=== PATIENT | male | born 1965 | race Caucasian/White ===

== ENCOUNTER 2018-07-01 11:54 | Emergency (ER) | payer SELFPAY ==
[~2018-07-01] VITALS: Ht 185.4 cm; Wt 95.3 kg
--- NOTE | 2018-07-01 12:15 | PHYS DOC ---
Adult General Chief Complaint Chief Complaint: NEURO SYMPTOMS/DEFICITS HPI HPI 52-year-old male presents with concern for stroke. He states that he woke up at 10:00 this morning and his right arm "was not working right". He felt like there was weakness in this extremity. He also admits that there is pain in the upper lateral shoulder. He was feeling a bit groggy as well and this was concerning. He is not sure if this is his blood sugar or further signs that he may have brain involvement. Patient has no history of strokes. He is a diabetic. Denies slurred speech, change in sensory perception, or change in coordination. After the CT, the patient told me that he was doing a lot of physical labor yesterday working on a house. He was moving a lot of things around and carrying things. He admits he may have overused his extremity. He tells me that he mostly can't hold the arm up because it is painful. He denies fever or chills. He has been taking his medications, but did not take anything this morning. He did not check his blood sugar this morning, but drank some chocolate milk. Review of Systems Review of Systems Constitutional: Denies fever or chills [] Eyes: Denies change in visual acuity, redness, or eye pain [] HENT: Denies nasal congestion or sore throat [] Respiratory: Denies cough or shortness of breath [] Cardiovascular: No additional information not addressed in HPI [] GI: Denies abdominal pain, nausea, vomiting, bloody stools or diarrhea [] : Denies dysuria or hematuria [] Musculoskeletal: Right shoulder pain and weakness[] Integument: Denies rash or skin lesions [] Neurologic: Denies headache, focal weakness or sensory changes [] Endocrine: Denies polyuria or polydipsia [] All other systems were reviewed and found to be within normal limits, except as documented in this note. Physical Exam Physical Exam Constitutional: Well developed, well nourished, no acute distress, non-toxic appearance. [] HENT: Normocephalic, atraumatic, bilateral external ears normal, oropharynx moist, no oral exudates, nose normal. [] Eyes: PERRLA, EOMI, conjunctiva normal, no discharge. [] Neck: Normal range of motion, no tenderness, supple, no stridor. [] Cardiovascular:Heart rate regular rhythm, no murmur [] Lungs & Thorax: Bilateral breath sounds clear to auscultation [] Abdomen: Bowel sounds normal, soft, no tenderness, no masses, no pulsatile masses. [] Skin: Warm, dry, no erythema, no rash. [] Back: No tenderness, no CVA tenderness. [] Extremities: Tenderness over the right lateral shoulder. Strength testing limited due to pain.[] Neurologic: Alert and oriented X 3, normal motor function, normal sensory function, no focal deficits noted. See NIHSS below [] Psychologic: Affect normal, judgement normal, mood normal. [] EKG EKG Sinus rhythm, rate 85, normal axis, no ST elevations or depressions.[] Radiology/Procedures Radiology/Procedures [] Impressions: CT HEAD INDICATION: Left arm weakness COMPARISON: None Available. Exposure: One or more of the following individualized dose reduction techniques were utilized for this examination: 1. Automated exposure control 2. Adjustment of the mA and/or kV according to patient size 3. Use of iterative reconstruction technique TECHNIQUE: 5 mm contiguous axial images were obtained from the skull base to the vertex in both bone and soft tissue algorithm. FINDINGS: Mild bilateral periventricular white matter hypodensities likely chronic small vessel ischemic disease. The left middle cerebral artery appears slightly hyperdense could be hyperdense MCA sign or physiological. No evidence of loss of mix-white matter differentiation in the left MCA territory. No evidence of acute intracranial hemorrhage. No extra-axial fluid collections. No mass effect or midline shift. Ventricular size is appropriate. Basal cisterns are patent. No fractures identified.Mix-white differentiation is preserved.Globes and orbits are within normal limits. Paranasal sinuses and mastoid air cells are clear. IMPRESSION: 1. No acute intracranial bleed. 2. The left middle cerebral artery appears slightly hyperdense could be hyperdense MCA sign or physiological. No evidence of loss of mix-white matter differentiation in the left MCA territory to suggest acute stroke. Correlate clinically. Dr. Mancia informed at 12:05 PM same day exam. Electronically signed by: Kodi Maloney MD (07/01/2018 12:10 PM) [facility] DICTATED AND SIGNED BY: KODI MALONEY MD DATE: 07/01/18 1210 CC: SHLOMO MANCIA DO; PCP,UNKNOWN ~ Course & Med Decision Making Course & Med Decision Making Pertinent Labs and Imaging studies reviewed. (See chart for details) The patient did have a drift of the right arm in the waiting room. He came by POV. He was immediately taken for head CT as a code stroke. There was no acute bleed visible on CT. The patient's NH stroke scale score is 1. I believe his arm symptoms are due to deltoid pain. His EKG is unremarkable. His labs are significant for a blood sugar over 400. We have given 1 L normal saline and 10 units of insulin. The patient is feeling a bit better at this time. He has been sleeping in the ED. The pain in his arm is less intense. He feels less groggy. He admits that he has had a lot of stress lately and is not getting much sleep. His repeat blood sugar was not really any better. I will give him an additional 1 L saline and 10 more units of regular insulin. His anion gap is normal. The patient's third glucose reading is 236. He has had a total of 2 L of saline and 20 units of regular insulin. He is stable for discharge at this time. 32 minutes of critical care time was spent on this patient exclusive of other billable procedures. [] Dragon Disclaimer Dragon Disclaimer This electronic medical record was generated, in whole or in part, using a voice recognition dictation system. NIH Stroke Scale: NIH Stroke Scale Response (Comments) Value Level of Consciousness: 0 Alert/Responsive 0 LOC Questions: 0 Answers both correctly 0 LOC Commands: 0 Performs both tasks 0 Best Gaze: 0 Normal 0 Facial Palsy: 0 Normal, symmetrical 0 Motor - Left Arm 0 No drift 0 Motor - Right Arm 1 Drifts but can hold 1 Motor - Left Leg 0 No drift 0 Motor: Right Leg 0 No drift 0 Limb Ataxia: 0 Absent 0 Sensory: 0 No loss 0 Best Language: 0 Normal 0 Dysathria: 0 Normal 0 Extinction and Inattention: 0 Normal 0 Total 1 Departure Departure: Impression: Primary Impression: Hyperglycemia due to type 2 diabetes mellitus Additional Impression: Right shoulder pain Disposition: HOME, SELF-CARE Condition: STABLE Referrals: PCP,UNKNOWN (PCP) Patient Instructions: Hyperglycemia, Cide-sp-Ymft, Shoulder Pain, [id number] Problem Qualifiers Primary Impression: Hyperglycemia due to type 2 diabetes mellitus 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
[2018-07-01] MEDS ORDERED: IV NORMAL SALINE 1,000ML 1,000 ML IV ONE ×2 (12:30→14:00)
[2018-07-01 12:37] LABS: HEMATOCRIT 47.4 % (39.0-53.0); HEMOGLOBIN 16.3 g/dL (13.0-17.5); RED BLOOD COUNT 5.26 x10^6/uL (4.30-5.70); RED CELL DISTRIBUTION WIDTH 13.1 % (11.5-14.5); WHITE BLOOD COUNT 7.8 x10^3/uL (4.0-11.0)
[2018-07-01 12:44] LABS: CALCIUM 9.1 mg/dL (8.5-10.1); GFR 79.1; POTASSIUM 4.1 mmol/L (3.5-5.1)
[2018-07-01] MEDS ORDERED: INSULIN REGULAR 100 UNIT/ML 3ML VIAL. IV ONE ×2 (12:45→14:00)
[2018-07-01 14:29] VITALS: BP 136/69
--- NOTE | 2018-07-02 15:37 | EKG ---
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
== END 2018-07-01 15:11 | disposition home or self-care (01) ==
LOC: ER 11:54
DX: E11.65 Type 2 diabetes mellitus with hyperglycemia (principal); M25.511 Pain in right shoulder
CPT/HCPCS: 36415; 70450; 80048; 82947; 85027; 85610; 85730; 93005; 96361; 96374; 96376; 99285; J1815; J7030

== ENCOUNTER 2019-02-22 17:51 | Inpatient (IN) | payer SELFPAY ==
[~2019-02-22] VITALS: Ht 185.4 cm; Wt 94.4 kg
[2019-02-22] MEDS ORDERED: IV RINGERS SOLUTION,LACTATED 1,000 ML IV SCH (18:03)
--- NOTE | 2019-02-22 18:03 | PHYS DOC ---
Past History Past Medical History: Diabetes, Other Past Surgical History: No Surgical History Alcohol Use: Rarely Drug Use: None Adult General Chief Complaint Chief Complaint: INSECT BITE..." I think I got a spider bite or something last .. on my back... it gotten much larger.. and hurts now...".." I ve been doing rehabilitation to this house.... " HPI HPI Patient is a 53 year old male who presents with insect- spider bite vs cellulitis. Patient states he thinks he got an insect bite on the back of his neck at several locations on , since that time the areas become red , inflamed and painful. Patient has an area approximately 18 x 20 cm with 4 areas of pointing abscess . Area under these points are fluctuant . Pt. does not remember his last tetanus. Patient does have a history of diabetes. Pt. follows with Dr. Coughlin. Patient referred to the emergency department for further evaluation I Dr. Coughlin. Pt. denies hx of immunosuppression or recent travel. Pt. rates cellulitis area pain as 20/10. Review of Systems Review of Systems Constitutional: Hx of fever or chills [] Eyes: Denies change in visual acuity, redness, or eye pain [] HENT: Denies nasal congestion or sore throat [] Respiratory: Denies cough or shortness of breath [] Cardiovascular: No additional information not addressed in HPI [] GI: Denies abdominal pain, nausea, vomiting, bloody stools or diarrhea [] : Denies dysuria or hematuria [] Musculoskeletal: Denies back pain or joint pain [] Integument: Complaints of spider bite to neck area. Neurologic: Denies headache, focal weakness or sensory changes [] Endocrine: Denies polyuria or polydipsia [] All other systems were reviewed and found to be within normal limits, except as documented in this note. Family History Family History Non-contributory Current Medications Current Medications See Nursing for home meds Allergies Allergies Allergies Coded Allergies Type Severity Reaction Last Updated Verified No Known Drug Allergies 07/01/18 No Physical Exam Physical Exam Constitutional: moderate acute distress, non-toxic appearance. [] HENT: Normocephalic, atraumatic, bilateral external ears normal, oropharynx dry, no oral exudates, nose normal. [] Eyes: PERRLA, EOMI, conjunctiva normal, no discharge. [] Neck: Limited range of motion, posterior neck edema and tenderness- edge of cellulitis, no stridor. [] Cardiovascular:Tachycardia Heart rate regular rhythm, no murmur , PMI to Lt. Lungs & Thorax: Bilateral breath sounds equal at apexes with scattered wheezes, some basilar crackles on auscultation [] Abdomen: Bowel sounds normal, soft, no tenderness, no masses, no pulsatile masses. Obese Skin: Warm, dry, except large area of cellulitis and 4 pointing abscess on upper back and neck area. Back: No tenderness, no CVA tenderness. Large area of cellulitis upper back and neck area. Extremities: No tenderness, no cyanosis, no clubbing, ROM intact, no edema. [] No cording appreciated. Neurologic: Alert and oriented X 3, normal motor function, distal sensory function, no focal deficits noted. [] Psychologic: Affect anxious, judgement normal, mood normal. [] EKG EKG I interpretation EKG shows a sinus tachycardia heart 60 bpm. This was nonspecific contour changes anterior lateral. But no findings of acute STEMI of contralateral changes. 1832 hrs. Repeat EKG at 1943 hrs. shows[] continued sinus tachycardia rate of 154 bpm. Some still nonspecific contour changes. But no findings acute STEMI of contralateral changes. Radiology/Procedures Radiology/[place] [id number] IMAGING REPORT Signed PATIENT: ELVIA CRUZ CACCOUNT: [id number] : 1965 LOCATION: ER AGE: 53 SEX: M EXAM STATUS: REG ER ORD. PHYSICIAN: KING TAN MD REASON: dm, cellulitis, chest wall PROCEDURE: CHEST PA & LATERAL Study: CHEST PA LATERAL Indication: Chest wall cellulitis. Comparison: None. Findings: Unremarkable cardiomediastinal silhouette and sahara. No pneumothorax, lobar infiltrate or pleural effusion. No soft tissue gas seen along the chest wall. Impression: No acute radiographic abnormality of the chest. Electronically signed by: DEMETRICE MATHIAS MD (02/22/2019 6:30 PM) [facility] DICTATED AND SIGNED BY: DEMETRICE MATHIAS MD DATE: 02/22/19 1830 CC: KING TAN MD; JATINDER DE LA ROSA ~ [address] [address] IMAGING REPORT Signed PATIENT: ELVIA CRUZ CACCOUNT: [id number] : 1965 LOCATION: ER AGE: 53 SEX: M EXAM STATUS: REG ER ORD. PHYSICIAN: KING TAN MD REASON: INSECT BITE, REDNESS, PAIN, SWELLING LT UPPER BACK, EVAL ABSCESS PROCEDURE: US CHEST Ultrasound of the posterior chest wall. HISTORY: Insect bite, redness pain, pain and swelling Ultrasound was used to evaluate the upper back on the left side. There is superficial soft tissue edema. A focal abscess or fluid collection was not identified. IMPRESSION: 1. Local subcutaneous soft tissue swelling. 2. No abscess or abnormal fluid collection identified. Electronically signed by: Maynor Ross MD (02/22/2019 10:10 PM) [facility] DICTATED AND SIGNED BY: MAYNOR ROSS MD DATE: 02/22/192209 CC: KING TAN MD; JATINDER DE LA ROSA ~ [][address] [address] IMAGING REPORT Signed PATIENT: ELVIA CRUZ CACCOUNT: [id number] : 1965 LOCATION: ER AGE: 53 SEX: M EXAM STATUS: REG ER ORD. PHYSICIAN: KING TAN MD REASON: Dyspnea, elev. D-dimer, abscess to upper back, spider bites. PROCEDURE: CT ANGIOGRAPHY CHEST Examination: CT angiography chest with IV contrast HISTORY: History of dyspnea, elevated d-dimer Technique: Axial CT angiography images of chest were performed with IV contrast. Coronal and sagittal 3-D MIP reformats are performed. Exposure: One or more of the following individualized dose reduction techniques were utilized for this examination: 1. Automated exposure control 2. Adjustment of the mA and/or kV according to patient size 3. Use of iterative reconstruction technique FINDINGS: The visualized thyroid grossly appears unremarkable. Central airways are patent. Mild cardiomegaly. The caliber of the aorta grossly appears unremarkable. There is no evidence of filling defect identified in the main pulmonary arterial trunk and right and left main pulmonary arteries. The evaluation of the distal lobar, segmental branches of the pulmonary arteries is limited. The lungs are clear. The liver, spleen, adrenals grossly appears unremarkable. Mild coronary artery calcifications. Moderate subcutaneous fat stranding identified in the upper back likely cellulitis. Moderate degenerative changes thoracic spine. IMPRESSION: 1. No evidence of central pulmonary embolism. 2. The lungs are clear. 3. Moderate diffuse fat stranding identified in the subcutaneous region of the upper back posteriorly probably cellulitis. Electronically signed by: Kodi Maloney MD (02/22/2019 9:46 PM) [facility] [place] Course & Med Decision Making Course & Med Decision Making Pertinent Labs and Imaging studies reviewed. (See chart for details) Pt. admitted to Dr. Bray for further eval. and treatment. Procedure Note: Incision and drainage- Area of cellulitis and abscess prepped with Betadine- use of sterile gloves and technique -incision and drainage of 4 pointing abscesses with return of pus with 11 blade. Area is probed with Q-tip to evaluate for tracking abscess. Cultures taken. Areas of these abscesses did not appear to communicate. Will appear obtain ultrasound to evaluate for other localized areas of abscess. Dressing applied. Will hydrate and treat with antibiotics. Will get cardiology consult. Lovenox for elevated D-dimer. Will not aggressively treat the tachycardia until hydration and anti biotics area on board. IV Insulin for hyperglycemia. May need further or repeat drainage of area of cellulitis. Impression; 1. Abscess and Cellulitis 2. Leukocytosis 24 with 89 Neut 3. Elevated D-dimer 3.46 4. Hyponatremia 119 5. DM = glucose 497 6. Elevated Lactic Acid 2.7 7. Elevated Alk Phos. 247 8. CHF-diastolic dysfunction - BNP 1,279 9. Severe Malnutrition 1.7 albumin. 10.Tachycardia- Appears sinus 11. Drug Screen + Meth/Amphetamine. 12. DKA vs Metabolic Acidosis from early SIR's / Sepsis [] Dragon Disclaimer Dragon Disclaimer This electronic medical record was generated, in whole or in part, using a voice recognition dictation system. Departure Departure: Disposition: 01 HOME/RESIDENCE PRIOR TO ADM Condition: STABLE Referrals: JATINDER DE LA ROSA (PCP) Dannie Disclaimer This chart was dictated in whole or in part using Voice Recognition software in a busy, high-work load, and often noisy Emergency Department environment. It may contain unintended and wholly unrecognized errors or omissions. Dannie Disclaimer This chart was dictated in whole or in part using Voice Recognition software in a busy, high-work load, and often noisy Emergency Department environment. It may contain unintended and wholly unrecognized errors or omissions. KING TAN MD Feb 22, 2019 18:03
--- NOTE | 2019-02-22 18:33 | RAD ---
Study: CHEST PA LATERAL Indication: Chest wall cellulitis. Comparison: None. Findings: Unremarkable cardiomediastinal silhouette and sahara. No pneumothorax, lobar infiltrate or pleural effusion. No soft tissue gas seen along the chest wall. Impression: No acute radiographic abnormality of the chest. Electronically signed by: DEMETRICE MATHIAS MD (02/22/2019 6:30 PM) [facility] [place]
[2019-02-22] MEDS ORDERED: IV RINGERS SOLUTION,LACTATED 1,000 ML IV ONE (18:45)
[2019-02-22] MEDS ORDERED: IV NORMAL SALINE 50ML 50 ML ONE (18:59)
[2019-02-22] MEDS ORDERED: cefTRIAXone SODIUM 1 GM VIAL ONE (18:59)
[2019-02-22] MEDS ORDERED: IV NORMAL SALINE 500ML 500 ML ONE ×2 (18:59→19:13)
[2019-02-22] MEDS ORDERED: VANCOMYCIN 1 GM VIAL. ONE (18:59)
[2019-02-22] MEDS ORDERED: DIPHTH,PERTUSS(ACELL),TET TOX 0.5 ML DISP.SYRIN. VAX IM ONE (19:00)
[2019-02-22] MEDS ORDERED: LIDOCAINE 2% 20 ML VIAL. IJ ONE (19:00)
[2019-02-22] MEDS ORDERED: MORPHINE SULFATE 10 MG/ML SYRINGE. SQ ONE (19:00)
[2019-02-22] MEDS ORDERED: VANCOMYCIN 1.5 GM in IV NORMAL SALINE 500ML 500 ML IV ONE (19:00)
[2019-02-22] MEDS ORDERED: ONDANSETRON PF 4 MG/2 ML VIAL. ONE (19:15)
[2019-02-22 19:17] LABS: BASO # 0.1 x10^3/uL (0.0-0.2); BASO % 0 % (0-3); EOS % 0 % (0-3); HEMATOCRIT 41.2 % (39.0-53.0); LYMPH # 0.6 x10^3/uL (1.0-4.8); LYMPH % 3 % (24-48); MEAN CORPUSCULAR HEMOGLOBIN 30 pg (25-35); MEAN CORPUSCULAR HGB CONC 34 g/dL (31-37); MEAN CORPUSCULAR VOLUME 87 fL (79-100); MONO % 8 % (0-9); NEUT # 21.2 x10^3uL (1.8-7.7); NEUT % 89 % (31-73); PLATELET COUNT 349 x10^3/uL (140-400); RED BLOOD COUNT 4.74 x10^6/uL (4.30-5.70); RED CELL DISTRIBUTION WIDTH 12.4 % (11.5-14.5)
[2019-02-22] MEDS ORDERED: ONDANSETRON PF 4 MG/2 ML VIAL. IVP ONE (19:30)
[2019-02-22 19:45] LABS: ALBUMIN 1.7 g/dL (3.4-5.0); CALCIUM 8.6 mg/dL (8.5-10.1); DIRECT BILIRUBIN 0.2 mg/dL (0.0-0.2); GFR 78.8; POTASSIUM 3.6 mmol/L (3.5-5.1); TOTAL BILIRUBIN 0.5 mg/dL (0.2-1.0); TOTAL PROTEIN 6.7 g/dL (6.4-8.2)
[2019-02-22] MEDS ORDERED: SODIUM BICARBONATE 50 MEQ/50 ML VIAL. IV ONE (20:45)
[2019-02-22] MEDS ORDERED: INSULIN REGULAR VIAL 100 UNIT in IV NORMAL SALINE 100ML 100 ML IV ONE (21:00)
[2019-02-22] MEDS ORDERED: IOHEXOL 350 MG/ML 100 ML VIAL. IV ONE (21:00)
[2019-02-22] MEDS ORDERED: ACETAMINOPHEN 325 MG TABLET PO PRN (21:00)
[2019-02-22] MEDS ORDERED: ONDANSETRON PF 4 MG/2 ML VIAL. IV PRN (21:00)
[2019-02-22] MEDS ORDERED: MORPHINE SULFATE 10 MG/ML SYRINGE. SQ PRN (21:00)
[2019-02-22] MEDS ORDERED: FUROSEMIDE 40 MG/4 ML VIAL IVP ONE (21:15)
[2019-02-22] MEDS ORDERED: ENOXAPARIN ** NOTE DOSE ** SYRINGE SQ ONE (21:15)
[2019-02-22] MEDS ORDERED: IV NORMAL SALINE 1,000ML 1,000 ML IV ONE ×2 (21:15→23:00)
[2019-02-22 21:44] LABS: % LYMPHS 5 % (24-48); % MONOS 8 % (0-10); % SEGS 81 % (35-66)
[2019-02-22 21:45] LABS: % BANDS 4 % (0-9)
[2019-02-22 21:46] LABS: % METAS 2 % (0-0)
[2019-02-22 21:48] LABS: ANISOCYTOSIS SLIGHT; PLT ESTIMATE ADEQUATE (ADEQUATE); TEAR DROP CELLS OCC; TOXIC GRANULATION SLIGHT
--- NOTE | 2019-02-22 21:50 | RAD ---
Examination: CT angiography chest with IV contrast HISTORY: History of dyspnea, elevated d-dimer Technique: Axial CT angiography images of chest were performed with IV contrast. Coronal and sagittal 3-D MIP reformats are performed. Exposure: One or more of the following individualized dose reduction techniques were utilized for this examination: 1. Automated exposure control 2. Adjustment of the mA and/or kV according to patient size 3. Use of iterative reconstruction technique FINDINGS: The visualized thyroid grossly appears unremarkable. Central airways are patent. Mild cardiomegaly. The caliber of the aorta grossly appears unremarkable. There is no evidence of filling defect identified in the main pulmonary arterial trunk and right and left main pulmonary arteries. The evaluation of the distal lobar, segmental branches of the pulmonary arteries is limited. The lungs are clear. The liver, spleen, adrenals grossly appears unremarkable. Mild coronary artery calcifications. Moderate subcutaneous fat stranding identified in the upper back likely cellulitis. Moderate degenerative changes thoracic spine. IMPRESSION: 1. No evidence of central pulmonary embolism. 2. The lungs are clear. 3. Moderate diffuse fat stranding identified in the subcutaneous region of the upper back posteriorly probably cellulitis. Electronically signed by: Kodi Maloney MD (02/22/2019 9:46 PM) [facility]
--- NOTE | 2019-02-22 22:13 | RAD ---
Ultrasound of the posterior chest wall. HISTORY: Insect bite, redness pain, pain and swelling Ultrasound was used to evaluate the upper back on the left side. There is superficial soft tissue edema. A focal abscess or fluid collection was not identified. IMPRESSION: 1. Local subcutaneous soft tissue swelling. 2. No abscess or abnormal fluid collection identified. Electronically signed by: Maynor Ross MD (02/22/2019 10:10 PM) [facility]
[2019-02-22 22:24] LABS: BARBITURATES NEG (NEG); BENZODIAZEPINES NEG (NEG); CANNABINOIDS NEG (NEG); COCAINE NEG (NEG); METHADONE NEG (NEG); OPIATES POS (NEG); PHENCYCLIDINE NEG (NEG)
[2019-02-22 22:25] LABS: AMPHETAMINE/METHAMPHETAMINE POS (NEG)
[2019-02-22 23:00] LABS: CLARITY,URINE CLEAR; COLOR,URINE STRAW
[2019-02-22 23:01] LABS: BACTERIA,URINE 0 /HPF (0-FEW); BILIRUBIN,URINE NEG (NEG); GLUCOSE,URINE >=1000 mg/dL (NEG); NITRITE,URINE NEG (NEG); RBC,URINE RARE /HPF (0-2); SQUAMOUS EPITHELIAL CELL,UR OCC /LPF; UROBILINOGEN,URINE 0.2 mg/dL (0.2 mg/dL); WBC,URINE 0 /HPF (0-4)
[2019-02-22] MEDS ORDERED: VANCOMYCIN PER PHARMACY MC PRN (23:30)
[2019-02-22 23:38] VITALS: BP 103/67
[2019-02-23] MEDS ORDERED: METF500T16 PO (00:09)
[2019-02-23] MEDS ORDERED: DAPA10TA PO (00:09)
[2019-02-23] MEDS ORDERED: CITA20TA6 PO (00:09)
[2019-02-23] MEDS ORDERED: IV NORMAL SALINE 1,000ML 1,000 ML IV ONE ×3 (00:30→08:00)
[2019-02-23] MEDS ORDERED: DEXTROSE 50% 25 GM / 50ML DISP.SYRIN. IV PRN (00:30)
--- NOTE | 2019-02-23 00:50 | EKG ---
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
[2019-02-23 01:19] VITALS: BP 111/76
[2019-02-23 01:35] LABS: ALBUMIN 1.4 g/dL (3.4-5.0); ALBUMIN/GLOBULIN RATIO 0.3 (1.0-1.7); CALCIUM 7.7 mg/dL (8.5-10.1); CREATININE 0.7 mg/dL (0.7-1.3); GFR 118.9; POTASSIUM 3.7 mmol/L (3.5-5.1); TOTAL BILIRUBIN 0.4 mg/dL (0.2-1.0); TOTAL PROTEIN 5.5 g/dL (6.4-8.2)
[2019-02-23] MEDS: IV NORMAL SALINE 1,000ML 1,000 ML IV SCH ×2 (02:21→08:03)
[2019-02-23] MEDS ORDERED: VANCOMYCIN 1.5 GM in IV NORMAL SALINE 500ML 500 ML IV SCH (04:00)
[2019-02-23 05:18] VITALS: BP 95/60
[2019-02-23] MEDS ORDERED: PIPERACILLIN/TAZOBACTAM 3.375 GM in IV NORMAL SALINE 50ML 50 ML IV SCH (06:00)
[2019-02-23] MEDS ORDERED: FUROSEMIDE 40 MG/4 ML VIAL IVP ONE (06:00)
[2019-02-23 07:16] VITALS: BP 111/94
[2019-02-23] MEDS ORDERED: INSULIN LISPRO 300 UNITS/3 ML VIAL. SQ SCH (07:30)
[2019-02-23 07:58] VITALS: BP 107/70
[2019-02-23] MEDS ORDERED: IPRATRPIUM/ALBUTEROL 0.5/2.5MG 3 ML NEBU. NEB SCH (08:00)
[2019-02-23 08:07] LABS: BASO # 0.1 x10^3/uL (0.0-0.2); BASO % 1 % (0-3); EOS # 0.1 x10^3/uL (0.0-0.7); EOS % 1 % (0-3); HEMATOCRIT 36.3 % (39.0-53.0); HEMOGLOBIN 12.5 g/dL (13.0-17.5); LYMPH # 0.8 x10^3/uL (1.0-4.8); LYMPH % 4 % (24-48); MEAN CORPUSCULAR HEMOGLOBIN 29 pg (25-35); MEAN CORPUSCULAR HGB CONC 34 g/dL (31-37); MEAN CORPUSCULAR VOLUME 85 fL (79-100); MONO % 10 % (0-9); NEUT # 17.4 x10^3uL (1.8-7.7); NEUT % 85 % (31-73); PLATELET COUNT 313 x10^3/uL (140-400); RED BLOOD COUNT 4.25 x10^6/uL (4.30-5.70); RED CELL DISTRIBUTION WIDTH 12.6 % (11.5-14.5); WHITE BLOOD COUNT 20.5 x10^3/uL (4.0-11.0)
[2019-02-23 08:10] LABS: CALCIUM 7.6 mg/dL (8.5-10.1); CREATININE 0.9 mg/dL (0.7-1.3); POTASSIUM 3.1 mmol/L (3.5-5.1)
[2019-02-23] MEDS ORDERED: LACTOBACILLUS RHAMNOSUS GG 1 CAPSULE. PO SCH (09:00)
[2019-02-23] MEDS ORDERED: VANCOMYCIN 1 GM in IV NORMAL SALINE 250ML 250 ML IV SCH (09:00)
[2019-02-23] MEDS ORDERED: ENOXAPARIN ** NOTE DOSE ** SYRINGE SQ ONE (09:00)
--- NOTE | 2019-02-23 13:06 | EKG ---
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
== END 2019-02-23 08:25 | disposition short-term general hospital (02) | DRG 871 ==
LOC: ER 17:51 → 1 SOUTH 20:30 → ICU 02-23 07:02
PROVIDERS: ADMIT Internal Medicine; ATTEND Internal Medicine
PROC: 0W9K0ZZ Drainage of Upper Back, Open Approach (ICD-10-PCS; principal; 2019-02-22)
DX: A41.9 Sepsis, unspecified organism (principal); E43 Unspecified severe protein-calorie malnutrition; E11.10 Type 2 diabetes mellitus with ketoacidosis without coma; E87.1 Hypo-osmolality and hyponatremia; I50.30 Unspecified diastolic (congestive) heart failure; L02.212 Cutaneous abscess of back [any part, except buttock and flank]; L03.312 Cellulitis of back [any part except buttock and flank]; E11.9 Type 2 diabetes mellitus without complications; F15.90 Other stimulant use, unspecified, uncomplicated; W57.XXXA Bitten or stung by nonvenomous insect and other nonvenomous arthropods, initial encounter; Y93.89 Activity, other specified; Y92.89 Other specified places as the place of occurrence of the external cause; Y99.8 Other external cause status
CPT/HCPCS: 10060; 36415; 71046; 71275; 76604; 80048; 80053; 80076; 80307; 81001; 82550; 82947; 83605; 83690; 83735; 83880; 84443; 84484; 85007; 85025; 85379; 85610; 85730; 87040; 87070; 87205; 90471; 90715; 93005; 96365; 96366; 96368; 96372; 96375; G0238; J0696; J1650; J1815; J1940; J2270; J2405; J2543; J3010; J3370; J3490; J7040; J7120; Q9967; 99285-25; J7030

== ENCOUNTER 2019-03-17 23:31 | Emergency (ER) | payer SELFPAY ==
[~2019-03-17] VITALS: Ht 185.4 cm; Wt 95.3 kg
[~2019-03-17 23:31] MED LIST: CITA20TA6 PO; DAPA10TA PO; METF500T16 PO
--- NOTE | 2019-03-17 23:46 | PHYS DOC ---
Past History Past Medical History: Abscess, Anemia, Anxiety, Arthritis, CAD, COPD, Diabetes, High Cholesterol, Other Past Surgical History: Tonsillectomy Past Surgical History Cellulitis and Deep tissue infection-debridement Alcohol Use: Rarely Drug Use: None Adult General Chief Complaint Chief Complaint: SHORTNESS OF BREATH ".. I ve been really short of breath today.. my legs are swelling.. I am on Lasix .. but it is not doing the job.. " " You admitted for my neck infection.. they could not get me transfered to [facility].. because of bad weather... I am Getting 3 surgical debridements of that area.." [facility] HPI Patient is a 53 year old male who presents with above hx and complaints dyspnea, fatigue, edema, and weakness. Patient much improved from previous ED visit on 02/22/2019 when he presented with a large area of cellulitis and deep tissue infection on back of neck. Since that time he's undergone 3 surgical debridement and continues on antibiotic via PICC line. Patient notes for the last 33 days he's had increased leg swelling that is not responding to Lasix. Patient is complaining of increased dyspnea and fatigue. Patient normally follows with Dr. Reyes. Patient denies any changes in meds. Patient denies missing any antibiotic infusions by [facility]. Review of Systems Review of Systems Constitutional: Denies fever or chills [] Eyes: Denies change in visual acuity, redness, or eye pain [] HENT: Denies nasal congestion or sore throat [] Respiratory: Complaints of shortness of breath [] Cardiovascular: No additional information not addressed in HPI [] GI: Denies abdominal pain, nausea, vomiting, bloody stools or diarrhea [] : Denies dysuria or hematuria [] Musculoskeletal: Denies back pain or joint pain [. Patient]complains of generalized fatigue Integument: Area of cellulitis and debridement much improved Neurologic: Denies headache, focal weakness or sensory changes [] Endocrine: Denies polyuria or polydipsia [] All other systems were reviewed and found to be within normal limits, except as documented in this note. Family History Family History Noncontributory to presentation Current Medications Current Medications See nursing for home medications Allergies Allergies Allergies Coded Allergies Type Severity Reaction Last Updated Verified No Known Drug Allergies 02/22/19 No Physical Exam Physical Exam Constitutional: Mild to moderate distress, non-toxic appearance. [] HENT: Normocephalic, atraumatic, bilateral external ears normal, oropharynx moist, no oral exudates, nose normal. Area of prior cellulitis and deep tissue infection on back of neck markedly improved. Eyes: PERRLA, EOMI, conjunctiva pale, no discharge. [] Neck: Normal range of motion, no tenderness, supple, no stridor. [] Healing area of prior cellulitis and deep tissue infection Cardiovascular: Tachycardia Heart rate regular rhythm, no murmur []. PMI to the left Lungs & Thorax: Bilateral breath sounds equal at apex with scattered wheezes on auscultation []. Bi -basalar crackles Abdomen: Bowel sounds normal, soft, no tenderness, no masses, no pulsatile masses. Old scar Skin: Warm, dry, no erythema, no rash. Pale Back: No tenderness, no CVA tenderness. [] Extremities: No tenderness, no cyanosis, no clubbing, ROM intact, 2+ leg edema level of knees Neurologic: Alert and oriented X 3, moves extremities on request. Does have distal sensory. No focal deficits noted. [] Psychologic: Affect normal, judgement normal, mood normal. [] EKG EKG My interpretation of EKG shows a sinus rhythm at 91 bpm. Some nonspecific contour changes but no findings acute STEMI of contralateral changes.[] Radiology/Procedures Radiology/Procedures [][place] [address] IMAGING REPORT Signed PATIENT: ELVIA CRUZ CACCOUNT: [id number] : 1965 LOCATION: ER AGE: 53 SEX: M EXAM STATUS: REG ER ORD. PHYSICIAN: KING TAN MD REASON: dyspnea PROCEDURE: CHEST PA & LATERAL CHEST PA LATERAL Technique: PA and lateral views of the chest were obtained. Clinical History: Dyspnea Comparison: February 22, 2019. Findings: The heart is normal size. There is patchy perihilar opacities. There is density in the costophrenic angles left worse than right. There has been interval placement of right PICC with its tip in the low SVC. The pulmonary vessels are top normal limits in size. There are curly B lines on the right. Impression: 1. Right PICC well-positioned. 2. Bilateral infiltrates likely secondary to CHF. Electronically signed by: Meg Rudolph III, MD (03/18/2019 12:45 AM) [id number] DICTATED AND SIGNED BY: MEG RUDOLPH III, MD DATE: 03/18/19 0045 CC: KING TAN MD; JATINDER DE LA ROSA ~ Course & Med Decision Making Course & Med Decision Making Pertinent Labs and Imaging studies reviewed. (See chart for details) Pt. admitted as observation status to , with Cardiology consult. Retic still pending at time of admit. Heart score 6- Last CT showed Coronary calcifications Impression: 1. CHF- BNP 2924 2. Elevated Trop. 0.148 3. Dyspnea 4. Anemia 5.8 Hg b 5. DM glu. 241 6. Hypomagnesium 1.5 7. Severe Malnutrition- Albumin 2.6 8. Elevated Alk Phos 131 9. Elevated D-dimer 0.97 10. Hx. Recent Cellulitis and Deep Tissue Infection- s/p Surgical debridement 3 ( Pic line antibiotics) 11. Tobacco Use [Note patient left before transport to the main hospital AMA to let his dog out but promptly returned. Patient will be a direct admit to . Plan continue prior orders. Dragon Disclaimer Dragon Disclaimer This electronic medical record was generated, in whole or in part, using a voice recognition dictation system. Departure Departure: Disposition: 01 HOME/RESIDENCE PRIOR TO ADM Condition: STABLE Referrals: JATINDER DE LA ROSA (PCP) Dragon Disclaimer This chart was dictated in whole or in part using Voice Recognition software in a busy, high-work load, and often noisy Emergency Department environment. It may contain unintended and wholly unrecognized errors or omissions. KING TAN MD Mar 17, 2019 23:46
--- NOTE | 2019-03-17 23:58 | EKG ---
[address] [address] Test Date: 2019-03-17 Test Time: 23:47:02 Pat Name: ELVIA CRUZ Department: Room: Gender: M Validation Consultant: : 1965 Requested By: KING TAN Order Number: [id number] Reading MD: Measurements Intervals [place] Rate: 91 P: 42 SD: 146 QRS: 42 QRSD: 82 T: 61 QT: 370 QTc: 457 Interpretive Statements SINUS RHYTHM LOW LIMB LEAD VOLTAGE NO SPECIFIC ECG ABNORMALITIES RI6.01 No previous ECG available for comparison
[2019-03-18] MEDS ORDERED: IV RINGERS SOLUTION,LACTATED 1,000 ML IV SCH (00:30)
[2019-03-18] MEDS ORDERED: IPRATRPIUM/ALBUTEROL 0.5/2.5MG 3 ML NEBU. NEB ONE (00:30)
[2019-03-18] MEDS ORDERED: ASPIRIN 81 MG TAB.CHEW PO ONE (00:30)
--- NOTE | 2019-03-18 00:48 | RAD ---
CHEST PA LATERAL Technique: PA and lateral views of the chest were obtained. Clinical History: Dyspnea Comparison: February 22, 2019. Findings: The heart is normal size. There is patchy perihilar opacities. There is density in the costophrenic angles left worse than right. There has been interval placement of right PICC with its tip in the low SVC. The pulmonary vessels are top normal limits in size. There are curly B lines on the right. Impression: 1. Right PICC well-positioned. 2. Bilateral infiltrates likely secondary to CHF. Electronically signed by: Ollie Spivey III, MD (03/18/2019 12:45 AM) [id number]
[2019-03-18 01:14] LABS: CALCIUM 7.8 mg/dL (8.5-10.1); CREATININE 0.9 mg/dL (0.7-1.3); POTASSIUM 4.4 mmol/L (3.5-5.1)
[2019-03-18 01:27] LABS: ALBUMIN 2.6 g/dL (3.4-5.0); DIRECT BILIRUBIN 0.2 mg/dL (0.0-0.2); MAGNESIUM 1.5 mg/dL (1.8-2.4); TOTAL BILIRUBIN 0.4 mg/dL (0.2-1.0); TOTAL PROTEIN 6.4 g/dL (6.4-8.2)
[2019-03-18] MEDS ORDERED: ACETAMINOPHEN 500 MG TABLET PO ONE (02:00)
[2019-03-18] MEDS ORDERED: ENOXAPARIN ** NOTE DOSE ** SYRINGE SQ ONE (02:00)
[2019-03-18] MEDS ORDERED: FUROSEMIDE 40 MG/4 ML VIAL IVP ONE ×2 (02:00→06:00)
[2019-03-18] MEDS ORDERED: diphenhydrAMINE 50 MG/ML VIAL IVP ONE (02:00)
[2019-03-18] MEDS ORDERED: BUMETANIDE 1 MG/4 ML VIAL. IVP SCH (02:00)
[2019-03-18] MEDS ORDERED: ACETAMINOPHEN 325 MG TABLET PO PRN (02:30)
[2019-03-18] MEDS ORDERED: ONDANSETRON PF 4 MG/2 ML VIAL. IV PRN (02:30)
[2019-03-18 03:12] LABS: BARBITURATES NEG (NEG); BENZODIAZEPINES NEG (NEG); CANNABINOIDS NEG (NEG); COCAINE NEG (NEG); METHADONE NEG (NEG); OPIATES NEG (NEG); PHENCYCLIDINE NEG (NEG)
[2019-03-18 03:13] VITALS: BP 131/80
[2019-03-18 03:13] LABS: BILIRUBIN,URINE NEG (NEG); CLARITY,URINE CLEAR; COLOR,URINE YELLOW; GLUCOSE,URINE 100 mg/dL (NEG); NITRITE,URINE NEG (NEG)
[2019-03-18 03:14] LABS: BACTERIA,URINE FEW /HPF (0-FEW); RBC,URINE OCC /HPF (0-2); SQUAMOUS EPITHELIAL CELL,UR OCC /LPF; WBC,URINE OCC /HPF (0-4)
[2019-03-18 03:15] LABS: AMPHETAMINE/METHAMPHETAMINE NEG (NEG)
[2019-03-18] MEDS ORDERED: FAMOTIDINE 20 MG/2 ML VIAL IVP ONE (04:00)
[2019-03-18] MEDS ORDERED: GLIM4TAB8 PO (07:36)
[2019-03-18] MEDS ORDERED: ASCO500C9 PO (07:36)
[2019-03-18] MEDS ORDERED: PANT40TA3 PO (07:36)
[2019-03-18] MEDS ORDERED: FURO-68 PO (07:36)
[2019-03-18] MEDS ORDERED: MULT-735 PO (07:36)
[2019-03-18] MEDS ORDERED: ASPI325T8 PO (07:36)
[2019-03-18] MEDS ORDERED: POTA20TA4 PO (07:36)
[2019-03-18] MEDS ORDERED: IPRATRPIUM/ALBUTEROL 0.5/2.5MG 3 ML NEBU. NEB SCH (08:00)
== END 2019-03-18 03:38 | disposition left against medical advice (07) ==
LOC: ER 23:31
DX: I50.9 Heart failure, unspecified (principal); R79.89 Other specified abnormal findings of blood chemistry; D64.9 Anemia, unspecified; E11.9 Type 2 diabetes mellitus without complications; E83.42 Hypomagnesemia; E43 Unspecified severe protein-calorie malnutrition; R78.89 Finding of other specified substances, not normally found in blood; F41.9 Anxiety disorder, unspecified; J44.9 Chronic obstructive pulmonary disease, unspecified; E78.00 Pure hypercholesterolemia, unspecified; I25.10 Atherosclerotic heart disease of native coronary artery without angina pectoris; Z68.27 Body mass index [BMI] 27.0-27.9, adult
CPT/HCPCS: 36415; 71046; 80048; 80076; 80307; 81001; 83690; 83735; 83880; 84443; 84484; 85007; 85025; 85045; 85379; 85610; 85730; 86850; 86900; 86901; 93005; 94640; 96361; 96372; 96374; 96375; 99285; J1200; J1650; J1940; J7120; J7620

== ENCOUNTER 2019-03-18 05:14 | Observation (INO) | payer SELFPAY ==
[~2019-03-18] VITALS: Ht 185.4 cm; Wt 108.9 kg
[2019-03-18 06:00] VITALS: BP 101/68
[2019-03-18] MEDS ORDERED: ONDANSETRON PF 4 MG/2 ML VIAL. IVP PRN (06:15)
[2019-03-18] MEDS ORDERED: ACETAMINOPHEN 325 MG TABLET PO PRN (06:15)
--- NOTE | 2019-03-18 07:00 | NUR ---
Patient arrived to unit at approx 0600 via ambulation. Patient was seen yesterday evening in the ED and declined to be admitted. Patient stated he had some things to take care of at home. Patient is oriented to room and procedures. Patient is resting in bed at time of shift change. Will continue to monitor.
[2019-03-18 07:29] LABS: BASO # 0.1 x10^3/uL (0.0-0.2); BASO % 1 % (0-3); EOS # 0.2 x10^3/uL (0.0-0.7); EOS % 3 % (0-3); HEMATOCRIT 23.7 % (39.0-53.0); LYMPH % 18 % (24-48); MEAN CORPUSCULAR HEMOGLOBIN 30 pg (25-35); MEAN CORPUSCULAR HGB CONC 32 g/dL (31-37); MEAN CORPUSCULAR VOLUME 95 fL (79-100); MONO # 0.6 x10^3/uL (0.0-1.1); MONO % 11 % (0-9); NEUT # 3.7 x10^3uL (1.8-7.7); NEUT % 67 % (31-73); PLATELET COUNT 198 x10^3/uL (140-400); RED BLOOD COUNT 2.49 x10^6/uL (4.30-5.70); WHITE BLOOD COUNT 5.5 x10^3/uL (4.0-11.0)
[2019-03-18] MEDS ORDERED: DEXTROSE 50% 25 GM / 50ML DISP.SYRIN. IV PRN (07:30)
[2019-03-18] MEDS ORDERED: FURO-68 PO (07:36)
[2019-03-18] MEDS ORDERED: MULT-735 PO (07:36)
[2019-03-18] MEDS ORDERED: PANT40TA3 PO (07:36)
[2019-03-18] MEDS ORDERED: POTA20TA4 PO (07:36)
[2019-03-18] MEDS ORDERED: ASPI325T8 PO (07:36)
[2019-03-18] MEDS ORDERED: GLIM4TAB8 PO (07:36)
[2019-03-18] MEDS ORDERED: ASCO500C9 PO (07:36)
[2019-03-18 07:50] LABS: CALCIUM 8.1 mg/dL (8.5-10.1); GFR 78.8; POTASSIUM 4.2 mmol/L (3.5-5.1)
[2019-03-18 08:00] LABS: HEMOGLOBIN 7.9 g/dL (13.0-17.5)
[2019-03-18] MEDS: INSULIN LISPRO 300 UNITS/3 ML VIAL. SQ SCH ×3 (08:00→17:22)
[2019-03-18 08:11] LABS: HEMOGLOBIN 7.5 g/dL (13.0-17.5)
[2019-03-18] MEDS: MAGNESIUM SULFATE 2GM 50 ML IV SCH ×2 (08:49→21:33)
[2019-03-18] MEDS: FERROUS SULFATE 325 MG TABLET. PO SCH ×2 (08:49→17:21)
[2019-03-18] MEDS ORDERED: BUMETANIDE 1 MG/4 ML VIAL. IVP SCH (09:00)
[2019-03-18] MEDS: IPRATRPIUM/ALBUTEROL 0.5/2.5MG 3 ML NEBU. NEB SCH ×4 (10:43→22:49)
[2019-03-18 10:44] VITALS: BP 107/61
[2019-03-18] MEDS: PANTOPRAZOLE 40 MG TABLET. PO SCH (12:06)
[2019-03-18] MEDS: POLYETHYLENE GLYCOL 3350 17 GM PACKET. PO SCH (12:06)
--- NOTE | 2019-03-18 12:09 | HP ---
ADMIT DATE: 03/18/2019 HISTORY OF PRESENT ILLNESS: The patient is a 53-year-old male patient who came to the Emergency Room with a complaint of shortness of breath and marked swelling of both legs. Apparently, he is on Lasix, but is not doing the job according to him. He has been treated with a wound VAC for his upper back wound that was debrided 3 times surgically and he is now on wound vacuum assisted closure device and was getting his antibiotic as an outpatient. Apparently, he was evaluated in the Emergency Room and their his lab work was 5.8 and 17.9. The patient was admitted to the hospital; however, the patient instead of coming to the hospital, he went home and then came back here and therefore is considered direct admission. Once his lab work repeated on admission, it showed that his actual hemoglobin was 7.5 and 23.7 from the lab drawn from his PICC line and when the lab was drawn from peripheral IV, it was 7.9 and 25. The patient was admitted mostly for marked fluid overload and generalized anasarca. In fact, his hemoglobin was only 2.6 g/dL. We did actually treat him at [facility] with the human albumin as well as IV Lasix. PAST MEDICAL HISTORY: Significant for: 1. Recent admission to [facility] with sepsis; hypotension, lactic acidosis. 2. Methicillin-sensitive Staphylococcus aureus bacteremia from his blood culture drawn at [facility]. At that time, his transesophageal echocardiogram was negative for vegetation. 3. Carbuncle, status post surgical incision and drainage x 3. He was discharged to continue with wound vacuum assisted closure device. 4. Acute respiratory failure requiring intubation and mechanical ventilation; however, he was successfully extubated. 5. Poorly controlled type 2 diabetes mellitus. Hemoglobin A1c on admission was 11.2% for which we resumed his metformin and started him on Amaryl. He also was diagnosed with severe hypokalemia, hyponatremia that has resolved. 6. Normochromic normocytic anemia for which he received 1 unit of packed RBCs. His hemoglobin on discharge from [facility] was 8 and hematocrit 24. 7. He has severe protein-calorie malnutrition with marked third spacing due to severe hypoalbuminemia. PAST SURGICAL HISTORY: Significant for tonsillectomy and surgical debridement of upper back abscess carbuncle x 3. ALLERGIES: He has no known drug allergies. FAMILY HISTORY: Noncontributory. SOCIAL HISTORY: Single, never , has no children. He claims that he does not smoke or drink alcohol; however, his toxic screen was positive for opiates, amphetamine and methamphetamine. MEDICATIONS: He is currently on following medications: He is on aspirin 325 mg once a day, potassium chloride 20 mEq once a day, furosemide 40 mg once a day, Protonix 40 mg daily, metformin 500 mg twice a day, glimepiride 4 mg daily, ascorbic acid 500 mg daily, multivitamin 1 tablet once a day. PHYSICAL EXAMINATION: GENERAL: When I saw him this morning, he was resting slightly propped up in bed, in no apparent distress. He was definitely pale, but no jaundice, cyanosis or thyromegaly. No jugular venous distention, but generalized anasarca. VITAL SIGNS: His heart rate was 88, blood pressure was 101/68, temperature was 98.1, respiratory rate 20, and oxygen saturation was 100%. HEAD, EYES, EARS, NOSE AND THROAT: Showed normocephalic, atraumatic. NECK: Supple. HEART: Showed normal first and second heart sounds. No gallop, rub or murmur. CHEST: Shows central trachea, equal bilateral expansion, air entry. I could not really appreciate any crepitation or rhonchi. ABDOMEN: Distended, soft, nontender. No guarding or rigidity. No organomegaly. All hernial orifice intact. Bowel sounds normal. NEUROLOGIC: He is awake, alert, responding appropriately. All cranial nerves intact. EXTREMITIES: He moves extremities without difficulty, ambulates without assistance or assistive devices. LABORATORY DATA: Work done at the hospital showed a white cell count 5500, hemoglobin 7.5, hematocrit 23.7, MCV 95, and platelet count of 198,000. His chemistry showed a serum sodium 136, potassium 4.2, chloride 101, bicarbonate 25, anion gap of 10, BUN 13, creatinine 1, estimated GFR was 79 mL per minute. His glucose was 267, calcium was 8.1. Troponin was 0.119. His troponin earlier one done at Emergency Room was 0.148. His urinalysis showed the urine was yellow, clear with a pH of 6.5, specific gravity of 1.010. The urine was negative for protein. There was a small amount of glucose, negative for ketones, negative for blood, nitrite and leukocyte esterase, occasional rbc's, occasional wbc's, and no bacteria. His toxic screen was essentially negative and his chest x-ray showed the heart size is normal. There are patchy perihilar opacities. There is density in the costophrenic angles, left worse than right. There has been interval placement of right PICC line with its tip in the lower superior vena cava. The pulmonary vessels are top normal limits in size. There are Dileep B lines on the right side consistent with probably congestive heart failure. ASSESSMENT AND PLAN: In summary, this is a 53-year-old male patient who is known to have poorly controlled type 2 diabetes mellitus, was admitted to [facility] with an upper back carbuncle that was treated with IV antibiotic and underwent surgical debridement x 3 and wound vacuum assisted closure device. He has normochromic normocytic anemia and he has generalized anasarca, likely due to severe protein-calorie malnutrition with marked hypoalbuminemia. My plan is to continue with all his medication except his Lasix to be given IV and start him on human albumin. We will also get a dietary consult for high protein diet. We will obviously continue with his antibiotic IV Rocephin 2 grams daily. GIOVANNA CRISTINA MD DR: GRACE/ratna JOB#: [id number] / [id number]
[2019-03-18] MEDS: FUROSEMIDE 40 MG/4 ML VIAL IVP SCH (13:43)
[2019-03-18] MEDS: MAGNESIUM OXIDE 400 MG TABLET PO SCH ×2 (13:43→21:33)
[2019-03-18] MEDS: POTASSIUM CHLORIDE 20 MEQ TABLET.ER. PO SCH ×2 (13:43→21:33)
[2019-03-18 15:00] VITALS: BP 108/63
[2019-03-18] MEDS: metFORMIN 500 MG TABLET PO SCH (17:21)
[2019-03-18 19:16] VITALS: BP 122/66
[2019-03-18] MEDS: DOCUSATE SODIUM 100 MG CAPSULE PO SCH (21:33)
[2019-03-18] MEDS: ALBUMIN HUMAN 25% 50 ML IV SCH (22:48)
[2019-03-18 23:10] VITALS: BP 117/62
[2019-03-19] MEDS: IPRATRPIUM/ALBUTEROL 0.5/2.5MG 3 ML NEBU. NEB SCH (05:06)
[2019-03-19 07:45] VITALS: BP 110/69
[2019-03-19] MEDS ORDERED: GLIMEPIRIDE 2 MG TABLET PO SCH (08:00)
[2019-03-19] MEDS: POTASSIUM CHLORIDE 20 MEQ TABLET.ER. PO SCH (08:04)
[2019-03-19] MEDS: FERROUS SULFATE 325 MG TABLET. PO SCH (08:04)
[2019-03-19] MEDS: PANTOPRAZOLE 40 MG TABLET. PO SCH (08:05)
[2019-03-19] MEDS: POLYETHYLENE GLYCOL 3350 17 GM PACKET. PO SCH (08:05)
[2019-03-19] MEDS: metFORMIN 500 MG TABLET PO SCH (08:05)
[2019-03-19] MEDS: DOCUSATE SODIUM 100 MG CAPSULE PO SCH (08:05)
[2019-03-19] MEDS: MAGNESIUM OXIDE 400 MG TABLET PO SCH (08:05)
[2019-03-19] MEDS: FUROSEMIDE 40 MG/4 ML VIAL IVP SCH (08:07)
[2019-03-19] MEDS: ALBUMIN HUMAN 25% 50 ML IV SCH (08:07)
[2019-03-19] MEDS: INSULIN LISPRO 300 UNITS/3 ML VIAL. SQ SCH (08:22)
[2019-03-19] MEDS ORDERED: MULTIVITAMIN with MINERAL TABLET. PO SCH (09:00)
[2019-03-19] MEDS ORDERED: POTASSIUM CHLORIDE 20 MEQ TABLET.ER. PO SCH (09:00)
[2019-03-19] MEDS ORDERED: ENOXAPARIN 40 MG/0.4 ML SYRINGE. SQ SCH (09:00)
[2019-03-19] MEDS ORDERED: ASCORBIC ACID 500 MG TABLET PO SCH (09:00)
[2019-03-19] MEDS ORDERED: ASPIRIN 325 MG TABLET PO SCH (09:00)
--- NOTE | 2019-03-19 09:06 | NUR ---
NURSING NOTE PT WAS IN HIS BED THIS AM UPON ASSESSMENT AND MEDICATION ADMINISTRATION. PT IS HERE FOR DX OF CHF, ELEVATED TROP, ELEVATED DDIMER, AND DM. PT BLOOD SUGAR THIS AM WAS OVER 200. PT HAS ORDERS FOR INSULIN. PT STATES "I DON'T WANT TO GET ON THAT STUFF, BUT ILL TAKE IT FOR NOW". PT IS CURRENTLY GETTING IV LASIX FOR CHF. PT HAS 2-3 + EDEMA IN BLE. PT IS VERY UPSET STATING THAT HE HAS BEEN HERE FOR MULTIPLE DAYS NOW AND NOTHING IS BEING DONE. STATES THE LASIX OBVIOUSLY ISN'T WORKING BECAUSE HE HAS SWELLING IN HIS LEGS. PT STATES HE IS LEAVING TODAY AFTER HE IS DONE WITH BREAKFAST AMA. ATTEMPT TO EXPLAIN TO PT ABOUT AMA AND PT STATES "I DONT NEED TO KEEP REPEATING MYSELF, I UNDERSTAND WHAT IT IS, I HAVE DONE IT BEFORE, I DONT HAVE INSURANCE SO I PAY MY OWN BILLS AND DO WHAT I WANT". PT BEGAN TO GET VERBALLY HOSTILE BUT NOT TOWARDS THIS NURSE, JUST VOICING CONCERN. OFFERED PT TO TALK WITH WOODYARD CRANE OPERATOR ABOUT HIS CONCERNS AND STAY. PT AGREED. MONICA, NURSING WOODYARD CRANE OPERATOR, JOINED TO SPEAK WITH THE PT ABOUT HIS STAY. THIS NURSE EXCUSED HERSELF FROM THE ROOM FOR PRIVACY. WILL CONTINUE TO MONITOR. PABLO GOLDBERG.
--- NOTE | 2019-03-19 09:30 | NUR ---
NURSING NOTE AMA PT SIGNED AMA FORM AND LEFT AFTER SPEAKING WITH NURSING AUTO AIR CONDITIONING APPRENTICE. PT INFORMED OF CONSEQUENCES INVOLVED IN LEAVING THE HOSPITAL AT THIS TIME AGAINST MEDICAL ADVICE. PT IS SCHEDULED FOR OUTPATIENT INFUSION AND WILL BE BACK AT 1530 PER PT. PABLO GOLDBERG.
== END 2019-03-19 09:33 | disposition left against medical advice (07) ==
LOC: 1 SOUTH 05:14
PROVIDERS: ADMIT Internal Medicine; ATTEND Internal Medicine
DX: E11.65 Type 2 diabetes mellitus with hyperglycemia (principal); I50.9 Heart failure, unspecified; R06.00 Dyspnea, unspecified; D64.9 Anemia, unspecified; R79.89 Other specified abnormal findings of blood chemistry; E83.42 Hypomagnesemia; E43 Unspecified severe protein-calorie malnutrition; E87.70 Fluid overload, unspecified; L02.232 Carbuncle of back [any part, except buttock and flank]; R09.02 Hypoxemia
CPT/HCPCS: 36415; 80048; 82947; 84484; 85014; 85018; 85025; 85610; 94640; 96365; 96366; 96367; 96368; 96372; 96375; 96376; G0378; G0379; J0696; J1815; J1940; J3475; J3490; J7620; P9046

== ENCOUNTER 2019-11-12 18:04 | Emergency (ER) | payer SELFPAY ==
[~2019-11-12] VITALS: Ht 185.4 cm; Wt 95.3 kg
[~2019-11-12 18:04] MED LIST changes: +ASCO500C9 PO; +ASPI325T8 PO; +FURO-68 PO; +GLIM4TAB8 PO; +MULT-735 PO; +PANT40TA3 PO; +POTA20TA4 PO
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
--- NOTE | 2019-11-12 19:51 | RAD ---
EXAM: SHOULDER 2+V RIGHT 11/12/2019 7:36 PM CLINICAL INDICATION:Fall, right shoulder pain COMPARISON:None TECHNIQUE:3 views of the right shoulder FINDINGS:There is a mildly comminuted fracture of the right proximal humerus involving the head and neck. No definite intra-articular extension. A fragment along the medial aspect of the neck and proximal shaft is displaced medially by approximately 6 mm. No significant angulation. Glenohumeral alignment is normal. Mild acromioclavicular degenerative joint disease. IMPRESSION:Comminuted, mildly displaced right proximal humerus fracture. Electronically signed by: Ariadna Alonso MD (11/12/2019 7:48 PM) [id number]
[2019-11-12] MEDS ORDERED: MORPHINE SULFATE 10 MG/ML SYRINGE. IM ONE (20:15)
[2019-11-12] MEDS ORDERED: TRAM50TA PO (20:44)
[2019-11-12] MEDS ORDERED: traMADol 50 MG TABLET PO ONE (20:45)
[2019-11-12 20:55] VITALS: BP 139/71
== END 2019-11-12 20:55 | disposition home or self-care (01) ==
LOC: ER 18:04
DX: S42.201A Unspecified fracture of upper end of right humerus, initial encounter for closed fracture (principal); S50.311A Abrasion of right elbow, initial encounter; M19.90 Unspecified osteoarthritis, unspecified site; I25.10 Atherosclerotic heart disease of native coronary artery without angina pectoris; J44.9 Chronic obstructive pulmonary disease, unspecified; E11.9 Type 2 diabetes mellitus without complications; E78.00 Pure hypercholesterolemia, unspecified; I10 Essential (primary) hypertension; Z86.73 Personal history of transient ischemic attack (TIA), and cerebral infarction without residual deficits; Y08.89XA Assault by other specified means, initial encounter; Y93.89 Activity, other specified; Y92.89 Other specified places as the place of occurrence of the external cause; Y99.8 Other external cause status
CPT/HCPCS: 29240; 73030; 99283